=== PATIENT | female | born 1995 | race Caucasian/White ===

== ENCOUNTER 2016-11-21 19:24 | Observation (INO) | payer SELFPAY ==
--- NOTE | 2016-11-21 21:32 | EDM.PDOC ---
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 She had experienced some spotting since Thursday but this afternoon she began to have a heavier flow as well as lower abdominal cramping and cramping in her low back. States that she felt well this morning and had no complaints or concerns. Has a history of miscarriages most recent was 2 years ago. Last menstrual period December 2015, is not on any control and is not attempting . No fever or chills. No chest pain, shortness of breath or difficulty breathing.] Review of systems: As per history of present illness and below otherwise all systems reviewed and negative. Past medical history: As per history of present illness and as reviewed below otherwise noncontributory. Surgical history: As per history of present illness and as reviewed below otherwise noncontributory. Social history: No reported history of drug or alcohol abuse. Family history: As per history of present illness and as reviewed below otherwise noncontributory. Physical exam: HEENT: Atraumatic, normocephalic. Lungs: Clear to auscultation, breath sounds equal bilaterally. Heart: S1S2, regular rate and rhythm. Abdomen: Normoactive bowel sounds throughout. Abdomen is soft and nondistended. She is mildly tender over the suprapubic area. No CVA tenderness. No masses guarding or rebound. Pelvis: Stable nontender. Genitourinary: Deferred. Rectal: Deferred. Extremities: Atraumatic, negative for cords or calf pain. Ambulates without assistance. Neurovascular unremarkable. Neuro: Awake, alert, oriented. Motor and sensory unremarkable throughout. Exam nonfocal. Diagnostics: [CBC, Rh/ABO, UA, urine culture, urine , quantitative hCG, OB ultrasound] Impression: [ectopic ] Plan: [Ultrasound shows ectopic . No gestational sac is visualized. The case is discussed with Dr. Mosquera who agrees to accept patient for observation. Patient and her significant other are notified of today's findings and agreement with today's plan. All questions are answered and concerns are addressed.] Definitive disposition and diagnosis as appropriate pending reevaluation and review of above. hypogastric area Pain Score (Numeric/FACES): 10 - Related Data Allergies Allergy/AdvReac Type Severity Reaction Status Date / Time Penicillins Allergy Cannot Verified 11/21/16 19:32 Remember Home Meds: Home Meds . 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 ED EXAM - Physical Exam Exam: See Below Course - Vital Signs Last Recorded V/S: Last Vital Signs Temp 97.6 F 11/21/16 19:25 Pulse 83 11/21/16 21:27 Resp 14 11/21/16 21:27 BP 126/65 11/21/16 21:27 Pulse Ox 99 11/21/16 21:27 - Orders/Labs/Meds Orders: Active Orders 24 hr Category Date Time Status Patient Status [ADT] Stat ADT 11/21/16 22:01 Ordered OB 1st Tri Sgl 1st Gest [US] Stat Exams 11/21/16 20:26 Taken CULTURE URINE [] Stat Lab 11/21/16 19:45 Received Labs: Laboratory Tests 11/21/16 11/21/16 11/21/16 Range/Units 19:45 19:45 20:32 WBC 15.51 H (4.0-11.0) K/uL RBC 4.43 (4.30-5.90) M/uL Hgb 13.3 (12.0-16.0) g/dL Hct 39.0 (36.0-46.0) % MCV 88.0 (80.0-98.0) fL MCH 30.0 (27.0-32.0) pg MCHC 34.1 (31.0-37.0) g/dL RDW Std Deviation 42.4 (28.0-62.0) fl RDW Coeff of Pham 13 (11.0-15.0) % Plt Count 277 (150-400) K/uL MPV 10.00 (7.40-12.00) fL Neut % (Auto) 80.6 H (48.0-80.0) % Lymph % (Auto) 13.3 L (16.0-40.0) % [place] % (Auto) 5.8 (0.0-15.0) % Eos % (Auto) 0.2 (0.0-7.0) % Baso % (Auto) 0.1 (0.0-1.5) % Neut # (Auto) 12.5 H (1.4-5.7) K/uL Lymph # (Auto) 2.1 (0.6-2.4) K/uL [place] # (Auto) 0.9 H (0.0-0.8) K/uL Eos # (Auto) 0.0 (0.0-0.7) K/uL Baso # (Auto) 0.0 (0.0-0.1) K/uL Nucleated RBC % 0.0 /100WBC Nucleated RBCs # 0 K/uL HCG, Quant mIU/mL Urine Color YELLOW Urine Appearance SLT CLOUDY Urine pH 7.0 (5.0-8.0) Ur Specific [place] 1.025 (1.001-1.035) Urine Protein TRACE (NEGATIVE) mg/dL Urine Glucose (UA) NEGATIVE (NEGATIVE) mg/dL Urine Ketones 15 H (NEGATIVE) mg/dL Urine Occult Blood LARGE H (NEGATIVE) Urine Nitrite NEGATIVE (NEGATIVE) Urine Bilirubin NEGATIVE (NEGATIVE) Urine Urobilinogen 1.0 (<2.0) EU/dL Ur Leukocyte Esterase TRACE (NEGATIVE) Urine RBC 0-5 (0-2/HPF) Urine WBC 10-15 (0-5/HPF) Ur Epithelial Cells MODERATE (NONE-FEW) Urine Bacteria 1+ H (NEGATIVE) Urine HCG, Qual POSITIVE (NEGATIVE) Blood Type 11/21/16 11/21/16 Range/Units 20:32 20:32 WBC (4.0-11.0) K/uL RBC (4.30-5.90) M/uL Hgb (12.0-16.0) g/dL Hct (36.0-46.0) % MCV (80.0-98.0) fL MCH (27.0-32.0) pg MCHC (31.0-37.0) g/dL RDW Std Deviation (28.0-62.0) fl RDW Coeff of Pham (11.0-15.0) % Plt Count (150-400) K/uL MPV (7.40-12.00) fL Neut % (Auto) (48.0-80.0) % Lymph % (Auto) (16.0-40.0) % [place] % (Auto) (0.0-15.0) % Eos % (Auto) (0.0-7.0) % Baso % (Auto) (0.0-1.5) % Neut # (Auto) (1.4-5.7) K/uL Lymph # (Auto) (0.6-2.4) K/uL [place] # (Auto) (0.0-0.8) K/uL Eos # (Auto) (0.0-0.7) K/uL Baso # (Auto) (0.0-0.1) K/uL Nucleated RBC % /100WBC Nucleated RBCs # K/uL HCG, Quant 759.7 mIU/mL Urine Color Urine Appearance Urine pH (5.0-8.0) Ur Specific [place] (1.001-1.035) Urine Protein (NEGATIVE) mg/dL Urine Glucose (UA) (NEGATIVE) mg/dL Urine Ketones (NEGATIVE) mg/dL Urine Occult Blood (NEGATIVE) Urine Nitrite (NEGATIVE) Urine Bilirubin (NEGATIVE) Urine Urobilinogen (<2.0) EU/dL Ur Leukocyte Esterase (NEGATIVE) Urine RBC (0-2/HPF) Urine WBC (0-5/HPF) Ur Epithelial Cells (NONE-FEW) Urine Bacteria (NEGATIVE) Urine HCG, Qual (NEGATIVE) Blood Type A POSITIVE Departure - Departure Time of Disposition: 22:00 Disposition: Refer to Observation Condition: Good Clinical Impression: Ectopic without intrauterine - Discharge Information Referrals: PCP,None [Primary Care Provider] - Forms: ED Department Discharge - My Orders Last 24 Hours: My Active Orders 11/21/16 19:45 CULTURE URINE [RM] Stat 11/21/16 20:26 OB 1st Tri Sgl 1st Gest [US] Stat 11/21/16 22:01 Patient Status [ADT] Stat - Assessment/Plan Last 24 Hours: My Active Orders 11/21/16 19:45 CULTURE URINE [RM] Stat 11/21/16 20:26 OB 1st Tri Sgl 1st Gest [US] Stat 11/21/16 22:01 Patient Status [ADT] Stat
[2016-11-21] MEDS ORDERED: Sodium Chloride 0.9% 1,000 ML IV ONE (22:13)
[2016-11-21] MEDS ORDERED: Morphine 2 MG/ML Syringe IVPUSH PRN (22:16)
[2016-11-21] MEDS ORDERED: Ondansetron 4 MG/2 ML SDV IVPUSH PRN (22:48)
[2016-11-22] MEDS ORDERED: Propofol 200 MG/20 ML SDV ONE (08:35)
[2016-11-22] MEDS ORDERED: Midazolam 1 MG/ML 2 ML SDV ONE (08:36)
[2016-11-22] MEDS ORDERED: fentaNYL 100 MCG/2 ML SDV ONE (08:36)
[2016-11-22] MEDS ORDERED: Neostigmine Methylsulfate 1 MG/ML 5 ML Syringe ONE (08:38)
[2016-11-22] MEDS ORDERED: Ketorolac 30 MG/ML SDV ONE (08:38)
[2016-11-22] MEDS ORDERED: Ondansetron 4 MG/2 ML SDV ONE (08:38)
[2016-11-22] MEDS ORDERED: Metoclopramide 10 MG/2 ML SDV ONE (08:38)
[2016-11-22] MEDS ORDERED: diphenhydrAMINE 50 MG/ML SDV ONE (08:38)
[2016-11-22] MEDS ORDERED: Lidocaine 2% 5 ML SDV ONE (08:38)
[2016-11-22] MEDS ORDERED: Rocuronium 10 MG/ML 10 ML Syringe ONE (08:38)
[2016-11-22 08:48] VITALS: BP 101/53
--- NOTE | 2016-11-22 08:48 | PCM.PREANE ---
Preanesthetic Assessment - Anesthesia/Transfusion/Family Hx Anesthesia History: Prior Anesthesia Without Reaction Family History of Anesthesia Reaction: No Transfusion History: No Prior Transfusion(s) Additional History: skin cancer removal only previous anesthesia - Review of Systems General: No Symptoms Pulmonary: No Symptoms Cardiovascular: No Symptoms Gastrointestinal: No Symptoms Neurological: No Symptoms Other: Reports: None - Physical Assessment NPO Status Date: 11/22/16 NPO Status Time: 00:00 Pulse: 83 O2 Sat by Pulse Oximetry: 99 Respiratory Rate: 17 Blood Pressure: 118/67 Temperature: 37.2 C Vital Signs: Last Vital Signs Temp 37.2 C 11/22/16 05:58 Pulse 72 11/22/16 05:58 Resp 17 11/22/16 05:58 BP 118/66 11/22/16 05:58 Pulse Ox 99 11/22/16 05:58 Height: 1.52 m Weight: 71.713 kg ASA Class: 1E Mental Status: Alert & Oriented x3 Dentition: Reports: Normal Dentition Thyro-Mental Finger Breadths: 3 Mouth Opening Finger Breadths: 3 (broken permanent retainer on front bottom) ROM/Head Extension: Full Lungs: Clear to Auscultation Cardiovascular: Regular Rate - Lab Values: Laboratory Last Values WBC 15.51 K/uL (4.0-11.0) H 11/21/16 20:32 RBC 4.43 M/uL (4.30-5.90) 11/21/16 20:32 Hgb 11.7 g/dL (12.0-16.0) L 11/22/16 06:08 Hct 34.8 % (36.0-46.0) L 11/22/16 06:08 MCV 88.0 fL (80.0-98.0) 11/21/16 20:32 MCH 30.0 pg (27.0-32.0) 11/21/16 20:32 MCHC 34.1 g/dL (31.0-37.0) 11/21/16 20:32 RDW Std Deviation 42.4 fl (28.0-62.0) 11/21/16 20:32 RDW Coeff of Pham 13 % (11.0-15.0) 11/21/16 20:32 Plt Count 277 K/uL (150-400) 11/21/16 20:32 MPV 10.00 fL (7.40-12.00) 11/21/16 20:32 Neut % (Auto) 80.6 % (48.0-80.0) H 11/21/16 20:32 Lymph % (Auto) 13.3 % (16.0-40.0) L 11/21/16 20:32 [place] % (Auto) 5.8 % (0.0-15.0) 11/21/16 20:32 Eos % (Auto) 0.2 % (0.0-7.0) 11/21/16 20:32 Baso % (Auto) 0.1 % (0.0-1.5) 11/21/16 20:32 Neut # (Auto) 12.5 K/uL (1.4-5.7) H 11/21/16 20:32 Lymph # (Auto) 2.1 K/uL (0.6-2.4) 11/21/16 20:32 [place] # (Auto) 0.9 K/uL (0.0-0.8) H 11/21/16 20:32 Eos # (Auto) 0.0 K/uL (0.0-0.7) 11/21/16 20:32 Baso # (Auto) 0.0 K/uL (0.0-0.1) 11/21/16 20:32 Nucleated RBC % 0.0 /100WBC 11/21/16 20:32 Nucleated RBCs # 0 K/uL 11/21/16 20:32 HCG, Quant 759.7 mIU/mL 11/21/16 20:32 Urine Color YELLOW 11/21/16 19:45 Urine Appearance SLT CLOUDY 11/21/16 19:45 Urine pH 7.0 (5.0-8.0) 11/21/16 19:45 Ur Specific [place] 1.025 (1.001-1.035) 11/21/16 19:45 Urine Protein TRACE mg/dL (NEGATIVE) 11/21/16 19:45 Urine Glucose (UA) NEGATIVE mg/dL (NEGATIVE) 11/21/16 19:45 Urine Ketones 15 mg/dL (NEGATIVE) H 11/21/16 19:45 Urine Occult Blood LARGE (NEGATIVE) H 11/21/16 19:45 Urine Nitrite NEGATIVE (NEGATIVE) 11/21/16 19:45 Urine Bilirubin NEGATIVE (NEGATIVE) 11/21/16 19:45 Urine Urobilinogen 1.0 EU/dL (<2.0) 11/21/16 19:45 Ur Leukocyte Esterase TRACE (NEGATIVE) 11/21/16 19:45 Urine RBC 0-5 (0-2/HPF) 11/21/16 19:45 Urine WBC 10-15 (0-5/HPF) 11/21/16 19:45 Ur Epithelial Cells MODERATE (NONE-FEW) 11/21/16 19:45 Urine Bacteria 1+ (NEGATIVE) H 11/21/16 19:45 Urine HCG, Qual POSITIVE (NEGATIVE) 11/21/16 19:45 Blood Type A POSITIVE 11/21/16 20:32 - Allergies Allergies/Adverse Reactions: Allergies Allergy/AdvReac Type Severity Reaction Status Date / Time Penicillins Allergy Cannot Verified 11/21/16 19:32 Remember - Blood Blood Available: Yes Product(s) Available: PRBC - Anesthesia Plan Pre-Op Medication Ordered: None - Acknowledgements Anesthesia Type Planned: General Anesthesia Pt an Appropriate Candidate for the Planned Anesthesia: Yes Alternatives and Risks of Anesthesia Discussed w Pt/Guardian: Yes Pt/Guardian Understands and Agrees with Anesthesia Plan: Yes PreAnesthesia Questionnaire - Past Health History Medical/Surgical History: Denies Medical/Surgical History Gastrointestinal History: Reports: Irritable Bowel Syndrome Genitourinary History: Reports: Other (See Below) Other Genitourinary History: Hx of miscarriage 3x 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 [No Known Home Meds] 11/21/16 [History] - CURRENT (IN HOUSE) MEDS Current Meds: Current Medications Morphine Sulfate (Morphine) 2 mg IVPUSH Q4H PRN PRN Reason: Pain Last Admin: 11/22/16 00:22 Dose: 2 mg Ondansetron HCl (Zofran) 4 mg IVPUSH Q4H PRN PRN Reason: Nausea/Vomiting Last Admin: 11/22/16 00:25 Dose: 4 mg Discontinued Medications Diphenhydramine HCl (Benadryl) Confirm Administered Dose 50 mg .ROUTE .STK-MED ONE Stop: 11/22/16 08:39 Fentanyl (Sublimaze) Confirm Administered Dose 100 mcg .ROUTE .STK-MED ONE Stop: 11/22/16 08:37 Glycopyrrolate () Confirm Administered Dose 1 mg .ROUTE .STK-MED ONE Stop: 11/22/16 08:39 Sodium Chloride (Normal Saline) 1,000 mls @ 100 mls/hr IV .BOLUS ONE Stop: 11/22/16 08:12 Last Admin: 11/21/16 22:18 Dose: 100 mls/hr Ketorolac Tromethamine (Toradol) Confirm Administered Dose 30 mg .ROUTE .STK- MED ONE Stop: 11/22/16 08:39 Lidocaine (Xylocaine-Mpf 2%) Confirm Administered Dose 5 ml .ROUTE .STK-MED ONE Stop: 11/22/16 08:39 Metoclopramide HCl (Reglan) Confirm Administered Dose 10 mg .ROUTE .STK-MED ONE Stop: 11/22/16 08:39 Midazolam HCl (Versed 1 Mg/Ml) Confirm Administered Dose 2 mg .ROUTE .STK-MED ONE Stop: 11/22/16 08:37 Neostigmine Methylsulfate (Neostigmine) Confirm Administered Dose 5 mg .ROUTE .STK-MED ONE Stop: 11/22/16 08:39 Ondansetron HCl (Zofran) Confirm Administered Dose 4 mg .ROUTE .STK-MED ONE Stop: 11/22/16 08:39 Propofol (Diprivan 20 Ml) Confirm Administered Dose 200 mg .ROUTE .STK-MED ONE Stop: 11/22/16 08:36 Rocuronium [place] (Zemuron) Confirm Administered Dose 100 mg .ROUTE .STK-MED ONE Stop: 11/22/16 08:39
[2016-11-22] MEDS ORDERED: fentaNYL 100 MCG/2 ML SDV IVPUSH PRN (08:49)
--- NOTE | 2016-11-22 09:28 | PCM.HP ---
H&P History of Present Illness - General Date of Service: 11/22/16 Admit Problem/Dx: Admission Diagnosis/Problem Admission Diagnosis/Problem Ectopic without intrauterine Source of Information: Patient History Limitations: Reports: No Limitations - History of Present Illness Onset of Symptoms: Reports: Sudden Improves with: Reports: None Worsens with: Reports: None Associated Symptoms: Reports: No Other Symptoms hypogastric area Pain Score (Numeric/FACES): 3 - Related Data Allergies/Adverse Reactions: Allergies Allergy/AdvReac Type Severity Reaction Status Date / Time Penicillins Allergy Cannot Verified 11/21/16 19:32 Remember Home Medications: Home Meds . 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 (See Below) Other OB/BYN History: miscarriage x3 Psychiatric History: Reports: Other (See Below) Other Psychiatric History: depression - Infectious Disease History Infectious Disease History: Reports: None - Past Surgical History GI Surgical History: Reports: None Social & Family History - Family History Family Medical History: Noncontributory - Tobacco Use Smoking Status *Q: Never Smoker Second Hand Smoke Exposure: No - Caffeine Use Caffeine Use: Reports: Soda Caffeine Use Comment: 5 sodas/day - Recreational Drug Use Recreational Drug Use: No H&P Review of Systems - Review of Systems: Review Of Systems: See Below General: Reports: No Symptoms HEENT: Reports: No Symptoms Pulmonary: Reports: No Symptoms Cardiovascular: Reports: No Symptoms Gastrointestinal: Reports: No Symptoms Genitourinary: Reports: No Symptoms Musculoskeletal: Reports: No Symptoms Skin: Reports: No Symptoms Psychiatric: Reports: No Symptoms Neurological: Reports: No Symptoms Hematologic/Lymphatic: Reports: No Symptoms Immunologic: Reports: No Symptoms Exam - Exam Exam: See Below - Vital Signs Vital Signs: Last Vital Signs Temp 37.2 C 11/22/16 08:47 Pulse 83 11/22/16 08:47 Resp 17 11/22/16 08:47 BP 118/67 11/22/16 08:47 Pulse Ox 99 11/22/16 08:47 Weight: 71.713 kg - Exam General: Alert, Oriented, 4 HEENT: PERRLA, Hearing Intact, Mucosa Moist & Rives, Nares Patent, Normal Nasal Septum, Posterior Pharynx Clear, Conjunctiva Clear, EOMI, EACs Clear, TMs Clear Neck: Supple, Trachea Midline, 2 Lungs: Clear to Auscultation, Normal Respiratory Effort Cardiovascular: Regular Rate, Regular Rhythm GI/Abdominal Exam: Normal Bowel Sounds, Soft, Non-Tender, No Organomegaly, No Distention, No Abnormal Bruit, No Mass, Pelvis Stable (Female) Exam: Normal External Exam, Normal Speculum Exam, Normal Bimanual Exam Rectal (Female) Exam: Normal Exam, Normal Rectal Tone Back Exam: Normal Inspection, Full Range of Motion, NT Extremities: Normal Inspection, Normal Range of Motion, Non-Tender, No Pedal Edema, Normal Capillary Refill Skin: Warm, Dry, Intact Neurological: Cranial Nerves Intact, Reflexes Equal Bilateral Neuro Extensive - Mental Status: Alert, Oriented x3, Normal Mood/Affect, Normal Cognition Neuro Extensive - Motor, Sensory, Reflexes: CN II-XII Intact, Normal Gait, Normal Reflexes Psychiatric: Alert, Normal Affect, Normal Mood - Patient Data Lab Results Last 24 hrs: Laboratory Results - last 24 hr 11/22/16 Range/Units 06:08 Hgb 11.7 L (12.0-16.0) g/dL Hct 34.8 L (36.0-46.0) % Result Diagrams: 11/22/16 06:08 *Q Meaningful Use (ADM) - VTE *Q VTE Criteria *Q: - Stroke *Q Stroke Criteria *Q: - AMI *Q AMI Criteria *Q: Problem List Initiated/Reviewed/Updated: Yes Orders Last 24hrs: Active Orders 24 hr Category Date Time Status Bradycardia-Neuroaxis [employer] [RC] ROUTINE Care 11/22/16 08:49 Active Hypertension-Neuroaxis [employer] [RC] ROUTINE Care 11/22/16 08:49 Active Hypotension-Neuroaxis [employer] [RC] ROUTINE Care 11/22/16 08:49 Active Oxygen Therapy [RC] ASDIRECTED Care 11/22/16 08:50 Active Vital Signs [RC] PER UNIT ROUTINE Care 11/22/16 08:49 Active Vital Signs [RC] Q4H Care 11/21/16 22:17 Active NPO After Midnight [Nothing per Oral After Midnight Diet 11/22/16 Breakfast Active Diet] [DIET] Methotrexate Sodium/PF [Methotrexate] Med 11/22/16 09:21 Once 85 mg IM ONETIME ONE Morphine Med 11/21/16 22:16 Active 2 mg IVPUSH Q4H PRN Ondansetron [Zofran] Med 11/21/16 22:48 Active 4 mg IVPUSH Q4H PRN fentaNYL [Sublimaze] Med 11/22/16 08:49 Active 50 mcg IVPUSH Q5M PRN Medication Orders Fentanyl (Sublimaze) 50 mcg IVPUSH Q5M PRN PRN Reason: Pain (severe 7-10) Stop: 11/22/16 12:00 Methotrexate Sodium (Methotrexate) 85 mg IM ONETIME ONE Stop: 11/22/16 09:22 Morphine Sulfate (Morphine) 2 mg IVPUSH Q4H PRN PRN Reason: Pain Last Admin: 11/22/16 00:22 Dose: 2 mg Ondansetron HCl (Zofran) 4 mg IVPUSH Q4H PRN PRN Reason: Nausea/Vomiting Last Admin: 11/22/16 00:25 Dose: 4 mg Assessment/Plan Comment:: Possible tubal admited for observation.
--- NOTE | 2016-11-22 09:29 | PCM.DCSUM1 ---
Discharge Summary - Discharge Data Discharge Date: 11/22/16 Discharge Disposition: Home, Self-Care 01 Condition: Fair - Patient Instructions Diet: Usual Diet as Tolerated Showering/Bathing: May Shower Notify Provider of: Fever, Increased Pain, Nausea and/or Vomiting - Discharge Plan Home Medications: Home Meds . [No Known Home Meds] 11/21/16 [History] Patient Handouts: Ectopic , [id number] Forms: ED Department Discharge Referrals: PCP,None [Primary Care Provider] - - General Info Date of Service: 11/22/16 Functional Status: Reports: Pain Controlled - Review of Systems General: Reports: No Symptoms HEENT: Reports: No Symptoms Pulmonary: Reports: No Symptoms Cardiovascular: Reports: No Symptoms Gastrointestinal: Reports: No Symptoms Genitourinary: Reports: No Symptoms Musculoskeletal: Reports: No Symptoms Skin: Reports: No Symptoms Neurological: Reports: No Symptoms Psychiatric: Reports: No Symptoms - Patient Data Vitals - Most Recent: Last Vital Signs Temp 37.2 C 11/22/16 08:47 Pulse 83 11/22/16 08:47 Resp 17 11/22/16 08:47 BP 118/67 11/22/16 08:47 Pulse Ox 99 11/22/16 08:47 Weight - Most Recent: 71.713 kg I&O - Last 24 hours: Intake & Output 11/21/16 11/22/16 11/22/16 22:59 06:59 14:59 Intake Total 200 Output Total 350 Balance -150 Lab Results - Last 24 hrs: Laboratory Results - last 24 hr 11/22/16 Range/Units 06:08 Hgb 11.7 L (12.0-16.0) g/dL Hct 34.8 L (36.0-46.0) % Med Orders - Current: Current Medications Fentanyl (Sublimaze) 50 mcg IVPUSH Q5M PRN PRN Reason: Pain (severe 7-10) Stop: 11/22/16 12:00 Methotrexate Sodium (Methotrexate) 85 mg IM ONETIME ONE Stop: 11/22/16 09:22 Morphine Sulfate (Morphine) 2 mg IVPUSH Q4H PRN PRN Reason: Pain Last Admin: 11/22/16 00:22 Dose: 2 mg Ondansetron HCl (Zofran) 4 mg IVPUSH Q4H PRN PRN Reason: Nausea/Vomiting Last Admin: 11/22/16 00:25 Dose: 4 mg Discontinued Medications Diphenhydramine HCl (Benadryl) Confirm Administered Dose 50 mg .ROUTE .STK-MED ONE Stop: 11/22/16 08:39 Fentanyl (Sublimaze) Confirm Administered Dose 100 mcg .ROUTE .STK-MED ONE Stop: 11/22/16 08:37 Glycopyrrolate () Confirm Administered Dose 1 mg .ROUTE .STK-MED ONE Stop: 11/22/16 08:39 Sodium Chloride (Normal Saline) 1,000 mls @ 100 mls/hr IV .BOLUS ONE Stop: 11/22/16 08:12 Last Admin: 11/21/16 22:18 Dose: 100 mls/hr Ketorolac Tromethamine (Toradol) Confirm Administered Dose 30 mg .ROUTE .STK- MED ONE Stop: 11/22/16 08:39 Lidocaine (Xylocaine-Mpf 2%) Confirm Administered Dose 5 ml .ROUTE .STK-MED ONE Stop: 11/22/16 08:39 Metoclopramide HCl (Reglan) Confirm Administered Dose 10 mg .ROUTE .STK-MED ONE Stop: 11/22/16 08:39 Midazolam HCl (Versed 1 Mg/Ml) Confirm Administered Dose 2 mg .ROUTE .STK-MED ONE Stop: 11/22/16 08:37 Neostigmine Methylsulfate (Neostigmine) Confirm Administered Dose 5 mg .ROUTE .STK-MED ONE Stop: 11/22/16 08:39 Ondansetron HCl (Zofran) Confirm Administered Dose 4 mg .ROUTE .STK-MED ONE Stop: 11/22/16 08:39 Propofol (Diprivan 20 Ml) Confirm Administered Dose 200 mg .ROUTE .STK-MED ONE Stop: 11/22/16 08:36 Rocuronium [place] (Zemuron) Confirm Administered Dose 100 mg .ROUTE .STK-MED ONE Stop: 11/22/16 08:39 - Exam General: Reports: Alert, Oriented HEENT: Reports: Pupils Equal, Pupils Reactive, EOMI, Mucous Membr. Moist/[place] Neck: Reports: Supple Lungs: Reports: Clear to Auscultation, Normal Respiratory Effort Cardiovascular: Reports: Regular Rate, Regular Rhythm GI/Abdominal Exam: Normal Bowel Sounds, Soft, Non-Tender, No Organomegaly, No Distention, No Abnormal Bruit, No Mass, Pelvis Stable (Female) Exam: Normal External Exam, Normal Speculum Exam, Normal Bimanual Exam Rectal (Female) Exam: Normal Exam, Normal Rectal Tone Back Exam: Reports: Normal Inspection, Full Range of Motion Extremities: Normal Inspection, Normal Range of Motion, Non-Tender, No Pedal Edema, Normal Capillary Refill Skin: Reports: Warm, Dry, Intact Wound/Incisions: Reports: Healing Well Neurological: Reports: No New Focal Deficit Psy/Mental Status: Reports: Alert, Normal Affect, Normal Mood *Q Meaningful Use (DIS) - VTE *Q VTE Criteria *Q: - Stroke *Q Stroke Criteria *Q: - AMI *Q AMI Criteria *Q:
[2016-11-22] MEDS ORDERED: Methotrexate PF 50 MG/2 ML SDV IM ONE (11:05)
--- NOTE | 2016-11-24 10:08 | US ---
EXAM DATE: 11/21/16 PATIENT'S AGE: 21 Patient: EUGENIO MENDIETA Facility: [place], [place] Site . Site : 1996 Study: US OB Pelvis [id number] 9:33:24 PM Ordering Physician: Doctor Linares Final Report: INDICATION: Positive urine test. Vaginal bleeding, cramping. TECHNIQUE: Ultrasound OB pelvis transvaginal. Real time james scale imaging of the pelvis was performed. COMPARISON: None FINDINGS: No definite gestation identified within the endometrium. Endometrium is heterogeneous with mild color Doppler flow. Trace fluid in the endometrial canal. Endometrial thickness is increased, measuring 27 millimeters. Echogenic free fluid is present. A hypoechoic focus in the right adnexa with peripheral color Doppler flow, image 64. Left ovary normal. IMPRESSION: 1. No intrauterine seen with abnormal appearance of right adnexa with echogenic free fluid. Findings are suspicious for ectopic . Complex free fluid in the posterior cul-de-sac with complex cyst in the right ovary with peripheral color Doppler flow. No definite pole identified within the right ovary. With no intrauterine gestation and complex free fluid, favor a right adnexal ectopic with corpus luteum cyst less likely. 2. Heterogeneous appearance to the endometrium, which is diffusely thickened with mild hypervascularity. By report, patient has had no menses for approximately 1 year. Report called to Dr. 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 Dictated by Navi Paulson MD @ 11/21/2016 9:59:31 PM Dictated by: Navi Paulson MD @ 11/21/2016 21:59:45 (Electronic Signature) Report Signed by Proxy. [facility] SYSTEM[facility]ai
--- NOTE | 2016-11-24 11:02 | HP ---
DATE OF : 1995 PRIMARY CARE PHYSICIAN: None PCP CONSULTATION AND HISTORY AND PHYSICAL HISTORY: Ms. Inez Madden is a 21-year-old patient. She is para 1-0-2-1. She had 2 previous miscarriages and 1 term 2 years ago. 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 She presented yesterday to the emergency room with bleeding, cramping, and lower abdominal pain. She was evaluated in the emergency room. She had an hCG level of 700+. She had a pelvic ultrasound, which showed an empty uterus in right adnexal complex with some free fluid, highly suspicious for a tubal . The patient was admitted overnight to the hospital for observation, since her condition is very stable and her blood pressure is very stable. Today, on examination, the patient's vital signs are essentially normal. The patient is without any distress. She is ambulating. She is voiding. There is minimum vaginal bleeding. There is minimum lower abdominal pain. I did not do pelvic examination on the patient today because it was recently done in the emergency room. My assessment of the patient is that she probably has either leaking or ruptured right tubal and it is very early . Her hCG level is 790. I discussed the options with the patient. I discussed the medical option and surgical option. I discussed the option of giving her methotrexate and observe her hCG level in the next 48 to 72 hours. I told her that this medical treatment may fail, and she may need to have surgery. I answered all her questions, which were appropriate, and I explained that in detail for her and her , and answered their questions. Then, I discussed the surgical option of doing diagnostic laparoscopy, and D and E. I told her, most likely, if we do diagnostic laparoscopy, she may end up having partial salpingectomy and discussed the option of that, and I discussed the details of that procedure with the patient and her , and I answered all of their appropriate questions. After the patient consulted with her and consulted with her extended family member over the telephone where they are in [place], the patient elected to have medical approach, so we are giving her 50 mg of methotrexate per m2. We will calculate the dose, and we will send the patient home to be followed in the office on Thursday, when we will repeat her hCG level. ELISSA / ALISHA /[id number]
== END 2016-11-22 11:15 | disposition home or self-care (01) ==
LOC: MW.ED 19:24 → MW.MS 22:01
PROVIDERS: ADMIT Obstetrics & Gynecology; ATTEND Obstetrics & Gynecology
DX: O00.90 Unspecified ectopic pregnancy without intrauterine pregnancy (principal); K58.9 Irritable bowel syndrome, unspecified
CPT/HCPCS: 36415; 76801; 81001; 81025; 84702; 85014; 85018; 85025; 86900; 86901; 87086; 99285; J2270; J2405; J3010; J7040; J9260; 96372; 96374; 96375; 99283; G0378; J1200; J1885; J2250; J2704; J2765

== ENCOUNTER 2016-12-03 20:42 | Observation (INO) | payer SELFPAY ==
--- NOTE | 2016-12-03 21:21 | EDM.PDOC ---
<Sivan Barton - Last Filed: 12/03/16 22:12> ED HPI GENERAL MEDICAL PROBLEM - General Chief Complaint: Abdominal Pain Stated Complaint: PT HAS STOMACH PAINS Time Seen by Provider: 12/03/16 21:10 Source of Information: Reports: Patient History Limitations: Reports: No Limitations - History of Present Illness INITIAL COMMENTS - FREE TEXT/NARRATIVE: HISTORY AND PHYSICAL: History of present illness: [Patient comes to the emergency room complaining of increased vaginal bleeding and abdominal pain. She was evaluated in the emergency room on November 21 and was admitted for observation due to ectopic without intrauterine , under the care of Dr. Mosquera. Patient elected to have methotrexate 15 mg injections rather than a surgical treatment. She was discharged home on November 22 and was to follow-up with Dr. Mosquera on the . She failed to do so because she does not have insurance and could not afford the $160 payment. She has had spotting since the hospitalization but today it gradually increased to heavier bleeding. She continues to have left lower quadrant abdominal pain, which continues to come and go. Today her pain became more intense and is occurring also to her low back. She has had episodes of chills but has not checked her temperature. She has felt more fatigued than usual over the past few days. No overt fevers or hot sweats. No sore throat, cough, chest pain shortness of breath or difficulty breathing. No nausea or vomiting. No swelling to her feet or lower legs. No change to urination or bowel movements.] Review of systems: As per history of present illness and below otherwise all systems reviewed and negative. Past medical history: As per history of present illness and as reviewed below otherwise noncontributory. Surgical history: As per history of present illness and as reviewed below otherwise noncontributory. Social history: No reported history of drug or alcohol abuse. Family history: As per history of present illness and as reviewed below otherwise noncontributory. Physical exam: HEENT: Atraumatic, normocephalic. Oral mucous membranes are pink and moist, throat clear. Lungs: Clear to auscultation, breath sounds equal bilaterally. Heart: S1S2, regular rate and rhythm. Abdomen: Bowel sounds are normoactive throughout. Abdomen is soft and nondistended. She is tender with palpation over the left lower quadrant and suprapubic areas. No masses guarding or rebound. No CVA tenderness. Pelvis: Stable nontender. Genitourinary: Deferred. Rectal: Deferred. Extremities: No edema to feet or lower legs. Neurovascular unremarkable. Neuro: Awake, alert, oriented. Motor and sensory unremarkable throughout. Exam nonfocal. Diagnostics: [Quantitative hCG, CBC, CMP, OB ultrasound] Therapeutics: [] Impression: [] Plan: [] Definitive disposition and diagnosis as appropriate pending reevaluation and review of above. abdominal pain Pain Score (Numeric/FACES): 4 - Related Data Allergies Allergy/AdvReac Type Severity Reaction Status Date / Time Penicillins Allergy Cannot Verified 12/03/16 21:20 Remember Home Meds: Home Meds . 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 , Other (See Below) Other OB/BYN History: miscarriage x3 Psychiatric History: Reports: Other (See Below) Other Psychiatric History: depression - Infectious Disease History Infectious Disease History: Reports: None - Past Surgical History GI Surgical History: Reports: None Social & Family History - Family History Family Medical History: Noncontributory - Tobacco Use Smoking Status *Q: Never Smoker Second Hand Smoke Exposure: No - Caffeine Use Caffeine Use: Reports: Soda Caffeine Use Comment: 5 sodas/day - Recreational Drug Use Recreational Drug Use: No ED ROS GENERAL - Review of Systems Review Of Systems: ROS reveals no pertinent complaints other than HPI. ED EXAM, GI/ABD - Physical Exam Exam: See Below Course - Vital Signs Last Recorded V/S: Last Vital Signs Temp 37.0 C 12/04/16 00:30 Pulse 92 12/04/16 00:30 Resp 16 12/04/16 00:30 BP 113/68 12/04/16 00:30 Pulse Ox 97 12/04/16 00:30 - Orders/Labs/Meds Orders: Active Orders 24 hr Category Date Time Status Admission Status [Patient Status] [ADT] Stat ADT 12/04/16 00:37 Ordered OB 1st Tri Sgl 1st Gest [US] Stat Exams 12/03/16 21:17 Taken Labs: Laboratory Tests 12/03/16 12/03/16 Range/Units 21:25 21:25 WBC 12.63 H (4.0-11.0) K/uL RBC 4.15 L (4.30-5.90) M/uL Hgb 12.4 (12.0-16.0) g/dL Hct 36.8 (36.0-46.0) % MCV 88.7 (80.0-98.0) fL MCH 29.9 (27.0-32.0) pg MCHC 33.7 (31.0-37.0) g/dL RDW Std Deviation 42.8 (28.0-62.0) fl RDW Coeff of Pham 13 (11.0-15.0) % Plt Count 277 (150-400) K/uL MPV 9.50 (7.40-12.00) fL Neut % (Auto) 65.2 (48.0-80.0) % Lymph % (Auto) 24.8 (16.0-40.0) % [place] % (Auto) 8.8 (0.0-15.0) % Eos % (Auto) 1.0 (0.0-7.0) % Baso % (Auto) 0.2 (0.0-1.5) % Neut # (Auto) 8.2 H (1.4-5.7) K/uL Lymph # (Auto) 3.1 H (0.6-2.4) K/uL [place] # (Auto) 1.1 H (0.0-0.8) K/uL Eos # (Auto) 0.1 (0.0-0.7) K/uL Baso # (Auto) 0.0 (0.0-0.1) K/uL Nucleated RBC % 0.0 /100WBC Nucleated RBCs # 0 K/uL Sodium 139 (136-146) mmol/L Potassium 3.8 (3.5-5.1) mmol/L Chloride 107 (98-110) mmol/L Carbon Dioxide 21 (21-31) mmol/L BUN 9 (6.0-23.0) mg/dL Creatinine 0.7 (0.6-1.5) mg/dL Est Cr Clr Drug Dosing 92.08 mL/min Estimated GFR (MDRD) > 60.0 ml/min Glucose 85 (60-110) mg/dL Calcium 9.1 (8.8-10.8) mg/dL Total Bilirubin 0.3 (0.1-1.5) mg/dL AST 15 (5-40) IU/L ALT 17 (8-54) IU/L Alkaline Phosphatase 102 (40-150) Total Protein 7.7 (6.0-8.0) g/dL Albumin 4.1 (3.5-5.0) g/dL Globulin 3.6 H (2.0-3.5) g/dL Albumin/Globulin Ratio 1.1 L (1.3-2.8) HCG, Quant 201.0 mIU/mL Departure - Departure Disposition: Refer to Observation Clinical Impression: Ectopic - Discharge Information Referrals: PCP,None [Primary Care Provider] - Forms: ED Department Discharge - My Orders Last 24 Hours: My Active Orders 12/04/16 00:37 Admission Status [Patient Status] [ADT] Stat - Assessment/Plan Last 24 Hours: My Active Orders 12/04/16 00:37 Admission Status [Patient Status] [ADT] Stat <Natan Tanner - Last Filed: 12/04/16 00:40> ED HPI GENERAL MEDICAL PROBLEM - History of Present Illness INITIAL COMMENTS - FREE TEXT/NARRATIVE: Following patient ultrasound for Sivan Ultrasound returned with increase in size of left adnexal mass, hCG is noted to have decreased there is complex fluid in the cul-de-sac possibly representing blood H&H is normal at this time vitals are stable and afebrile Blood type is a positive Assessment Ectopic Complex fluid in the cul-de-sac with increasing size of ectopic Plan Patient admitted to Dr. mosquera for observation further orders pending his evaluation and treatment Departure - Departure Time of Disposition: 00:38 Condition: Fair
[2016-12-03 21:54] LABS: CHLORIDE,CL 107 mmol/L (98-110); SODIUM,NA 139 mmol/L (136-146)
[2016-12-04] MEDS ORDERED: Ondansetron 4 MG/2 ML SDV IVPUSH ONE (01:03)
[2016-12-04] MEDS ORDERED: Sodium Chloride 0.9% 1,000 ML IV SCH ×2 (01:15→02:15)
[2016-12-04] MEDS ORDERED: Ondansetron 4 MG/2 ML SDV IVPUSH PRN (02:09)
[2016-12-04] MEDS ORDERED: HYDROmorphone 2 MG/ML Syringe IVPUSH PRN (02:09)
[2016-12-04 08:13] VITALS: BP 104/50
--- NOTE | 2016-12-04 10:19 | US ---
EXAM DATE: 12/04/16 PATIENT'S AGE: 21 Patient: EUGENIO MENDIETA Facility: [place], [place] Site . Site : 1995 Study: US Pelvis [id number] 11:28:06 PM Ordering Physician: Doctor Linares Final Report: INDICATION: Left lower quadrant pain, HCG quant 201. Ectopic on 11/21/2016 currently being treated with oral medication. Stable hematocrit. TECHNIQUE: Ultrasound pelvis transvaginal only. COMPARISON: 11/21/2016. FINDINGS: Uterus: 9.3 centimeters x 4.7 centimeters x 5.4 centimeters. Normal echotexture of the myometrium. No masses. Endometrium: Transvaginal imaging was performed to better evaluate the endometrium. thickness mm in thickness. No sign of endometrial mass or fluid. Right ovary: The 0.5 centimeters x 2.2 centimeters x 2.9 centimeters. No ovarian or adnexal masses. Stable complex cyst right ovary. Normal arterial and venous blood flow. Left ovary: 4 1 centimeters x 2.8 centimeters x 3.1 centimeters. Complex mass left adnexa consistent patient`s known ectopic , increased in size compared to 11/21/16. Normal arterial and venous blood flow. Cul-de-sac: Complex fluid in the cul-de-sac and left adnexa may represent blood products. IMPRESSION: Left adnexal masslike lesion consistent with patient`s known ectopic which has increased in size compared to 11/21/16. Complex fluid in the pelvis the left adnexa may represent blood products. Findings discussed on 12/04/2016 at 12:[address] Romero. Dictated by Hernan Arnold MD @ 12/04/2016 12:07:04 AM Dictated by: Hernan Arnold MD @ 12/04/2016 00:07:29 (Electronic Signature) Report Signed by Proxy. DELONTE
--- NOTE | 2016-12-05 03:37 | CONS ---
DATE OF CONSULTATION: DATE OF : 1995 PRIMARY CARE PHYSICIAN: None PCP Ms. Madden is a 21-year-old patient. She is para 1-0-0-1. She is admitted for observation through the emergency room for evaluation of possible tubal . The patient was in the hospital before a week ago, and the patient consented and I elected to treat her with methotrexate at that time. The patient did have the methotrexate and at that time, her beta-hCG TRUDY was 700, and the patient was sent home in stable condition, and she was supposed to have a followup in the office the next day. However, the patient did not show up to her appropriate followup, and an attempt to contact her was made. After contacting her, the patient stated that at this time she had no health insurance and she cannot afford coming to a doctor. We advised her to at least come to have an HCG level to see what is her status. The patient did not come to the hospital for HCG level and did not return call on further attempt of contacting her. She presented early this morning to the emergency room stating that she has more abdominal pain. However, her vital sign was stable and her hematocrit was stable from her last admission. The patient stated she had pain. She had a pelvic ultrasound which showed some evidence of hemoperitoneum, small amount, and the possibility of blood clot in the adnexal area, but there is no gestational sac and there is no active bleeding. The patient is admitted for observation this morning, and I repeated her hematocrit. Her hematocrit was stable, her vital signs were stable, and I discussed the finding with the patient and her beta-hCG TRUDY today is 200, so it has dropped significantly. I discussed the finding with the patient today and her mother, and I presented the option for them that she can have a diagnostic laparoscopy for evacuation of blood clot and the hemoperitoneum or she can have a conservative management again, maybe another dose of methotrexate and we would watch her and manage her expectantly, provided she would follow up in the office. The patient initially said she would like to have expectant management and then later on, she stated that she is unhappy with the hospital, she is unhappy in the ER how she was treated by personnel in the hospital. I tried to convince the patient, and she stated that she is going to go, seek treatment in a different hospital. I tried to convince the patient and advised her to act in her best interest. She declined that and later on, she signed against medical advice and she left the hospital. ELISSA BRITO /[id number]
== END 2016-12-04 09:20 | disposition left against medical advice (07) ==
LOC: MW.ED 20:42 → MW.MS 12-04 00:37
PROVIDERS: ADMIT Obstetrics & Gynecology; ATTEND Obstetrics & Gynecology
DX: K66.1 Hemoperitoneum (principal)
CPT/HCPCS: 36415; 76801; 80053; 84702; 85014; 85018; 85025; 96374; 99285; J1170; J2405; J7040; 96375; 96376; 99283; G0378